=== PATIENT | female | born 1945 ===

== ENCOUNTER 2019-04-20 09:00 | Inpatient (IN) | payer OTHER ==
[~2019-04-20] VITALS: Ht 165.1 cm; Wt 83.0 kg
[2019-04-20] MEDS ORDERED: VERELAN240 MG PO (09:24)
[2019-04-20] MEDS ORDERED: LOSARTAN-HCTZ1 EAC1 PO (09:24)
[2019-04-20] MEDS ORDERED: VASOFLEX D1 CA1 EACH PO (09:25)
[2019-04-20] MEDS ORDERED: VENTOLIN HFA18 GM IH (09:25)
[2019-04-20] MEDS ORDERED: FOLIC ACID1 MG PO (09:25)
[2019-04-20] MEDS ORDERED: SINGULAIR10 MG PO (09:25)
[2019-04-20] MEDS ORDERED: [UNRECOGNIZED DRUG - OTHER] PO (09:26)
[2019-04-26] MEDS ORDERED: KETOCONAZOLE15 GM (09:47)
[2019-04-26] MEDS ORDERED: VITAMIN D10000 UNIT PO (09:47)
[2019-04-26] MEDS ORDERED: METHOTREXATE2.5 MG PO (09:48)
[2019-04-26] MEDS ORDERED: LEVO-T100 MCG PO (09:48)
[2019-04-26] MEDS ORDERED: VASOFLEX HD CA1 EACH PO (09:51)
[2019-04-26] MEDS ORDERED: FLOVENT HFA12 GM (09:52)
== END 2019-04-30 12:24 | DRG 519 ==
LOC: SURG 04-26 05:10 → O/R 04-26 05:10 → SURH 04-26 07:00 → CIR.AMB 04-26 09:00 → SURH 04-26 09:00 → EDSTATUS 04-26 09:00 → O/R 04-26 09:00 → SURG 04-26 13:43
PROVIDERS: ADMIT Neurological Surgery
PROC: 0QB00ZZ Excision of Lumbar Vertebra, Open Approach (ICD-10-PCS; 2019-04-26)
PROC: 00NY0ZZ Release Lumbar Spinal Cord, Open Approach (ICD-10-PCS; principal; 2019-04-26 07:00)
DX: M43.16 Spondylolisthesis, lumbar region (principal); M51.06 Intervertebral disc disorders with myelopathy, lumbar region; J95.89 Other postprocedural complications and disorders of respiratory system, not elsewhere classified; J98.11 Atelectasis; J90 Pleural effusion, not elsewhere classified; M48.061 Spinal stenosis, lumbar region without neurogenic claudication; I10 Essential (primary) hypertension; E03.8 Other specified hypothyroidism; E88.09 Other disorders of plasma-protein metabolism, not elsewhere classified; E80.6 Other disorders of bilirubin metabolism